=== PATIENT | male | born 1945 | race Caucasian/White ===

== ENCOUNTER 2019-10-31 00:12 | Inpatient (IN) ==
[2019-10-31] MEDS ORDERED: NS 0.9% 1000 ml BAG 1,000 ML IV ONE (00:50)
[2019-10-31] MEDS ORDERED: Albuterol HFA INHALER 8 gm MDI INH PRN (01:32)
[2019-10-31] MEDS ORDERED: Vancomycin(*) 1,250 MG IV x ONCE IVPB ONE (02:00)
[2019-10-31] MEDS ORDERED: Vancomycin per Pharmacy 1 EA NOTE FOLLOW UP SCH (02:00)
[2019-10-31] MEDS ORDERED: Morphine 2 MG/ML SYRINGE IV PRN (02:06)
[2019-10-31] MEDS ORDERED: Al Hydrox/Mg Hydrox/Simet LIQ 30 ML UDC PO PRN (02:06)
[2019-10-31] MEDS ORDERED: Senna TAB 8.6 mg TAB PO PRN (02:06)
[2019-10-31 02:27] LABS: BUN/Creatinine Ratio 18.5 (8-20); Blood Urea Nitrogen 61 mg/dL (6-24); EGFR African American 22.4 (>60); EGFR Non-African American 18.5 (>60); Glucose 282 mg/dL (70-100); Magnesium 1.4 mg/dL (1.9-2.7); Sodium 130 mmol/L (135-145)
[2019-10-31 02:38] LABS: Anion Gap 7 mmol/L (2-11); CO2 Carbon Dioxide 10 mmol/L (22-32); Calcium 6.4 mg/dL (8.6-10.3); Chloride 113 mmol/L (101-111)
[2019-10-31] MEDS ORDERED: Magnesium Sulfate IV 3 GM in NS 0.9% 100 ml BAG 100 ML IVPB ONE (02:40)
[2019-10-31] MEDS ORDERED: Lactated Ringers 1000 ml BAG 1,000 ML IV SCH (03:00)
[2019-10-31 04:18] LABS: Prealbumin 10 mg/dL (18-38)
[2019-10-31 04:33] LABS: Hematocrit 30 % (42-52); Hemoglobin 9.6 g/dL (14.0-18.0); Mean Corpuscular HGB Conc 32 g/dL (31-36); Mean Corpuscular Hemoglobin 29 pg (27-31); Mean Corpuscular Volume 89 fL (80-94); Mean Platelet Volume 7.2 fL (7.4-10.4); Platelet Count 333 10^3/uL (150-450); Red Blood Count 3.38 10^6 /uL (4.18-5.48); Red Cell Distribution Width 17 % (10-15); White Blood Count 23.7 10^3/uL (3.5-10.8)
[2019-10-31 04:41] LABS: Potassium 3.8 mmol/L (3.5-5.0)
[2019-10-31] MEDS: Cefepime 2 GM in Dextrose 2 GM/50 ML BAG IV SCH (04:42)
[2019-10-31 04:44] LABS: INR 1.59 (0.82-1.09)
[2019-10-31 04:47] LABS: BUN/Creatinine Ratio 18.7 (8-20); EGFR African American 21.8 (>60)
[2019-10-31] MEDS ORDERED: Sodium Bicarbonate 8.4% VIAL 1 MEQ/ML 50 ml VIAL (50 meq) IV ONE (05:08)
[2019-10-31 05:27] LABS: Vancomycin Trough 4.2 mcg/mL
[2019-10-31] MEDS: Sodium Bicarb 8.4% Vial 50 ML 150 MEQ in D5W 1000 ml BAG 850 ML IV SCH ×2 (05:32→20:20)
[2019-10-31] MEDS: Insulin GLARGINE 100 un/ml 10 ml VIAL SUBCUT SCH (05:36)
[2019-10-31] MEDS ORDERED: Heparin 5000 UNITS/ML 1 mL VIAL SUBCUT SCH (06:00)
[2019-10-31 07:57] LABS: ABS Basophils 0.3 10^3/ul (0-0.2); ABS Neutrophils 20.5 10^3/ul (1.5-7.7); Lymphocyte % 4.2 %
[2019-10-31] MEDS: metroNIDAZOLE IV 500 MG/100ML 500 MG/100 ML BAG IVPB SCH ×3 (08:10→17:18)
[2019-10-31] MEDS: NS 0.9% 1000 ml BAG 1,000 ML IV SCH (08:10)
[2019-10-31] MEDS ORDERED: Vancomycin Random Level NOTE FOLLOW UP ONE (10:00)
[2019-10-31 11:16] LABS: Vancomycin Random 4.2 mcg/mL
[2019-10-31] MEDS ORDERED: Calcium Gluconate 2 GM in NS 0.9% 100 ml BAG 100 ML IV ONE (12:12)
[2019-10-31] MEDS ORDERED: Vancomycin 1500 MG IV - x ONCE IVPB ONE (13:30)
[2019-10-31] MEDS ORDERED: Warfarin DAILY REMINDER **NOTE FOLLOW UP SCH (17:00)
[2019-10-31 18:50] LABS: Potassium Redraw 3.6 mmol/L (3.5-5.0)
[2019-10-31 19:43] LABS: Hematocrit 26 % (42-52); Hemoglobin 8.5 g/dL (14.0-18.0); Mean Corpuscular HGB Conc 34 g/dL (31-36); Mean Corpuscular Hemoglobin 29 pg (27-31); Mean Corpuscular Volume 86 fL (80-94); Mean Platelet Volume 7.3 fL (7.4-10.4); Platelet Count 311 10^3/uL (150-450); Red Blood Count 2.98 10^6 /uL (4.18-5.48); Red Cell Distribution Width 18 % (10-15); White Blood Count 15.2 10^3/uL (3.5-10.8)
[2019-10-31 20:09] LABS: ABS Basophils 0.1 10^3/ul (0-0.2); ABS Eosinophils 1.3 10^3/ul (0-0.6); ABS Lymphocytes 0.9 10^3/ul (1.0-4.8); ABS Monocytes 0.7 10^3/ul (0-0.8); ABS Neutrophils 12.2 10^3/ul (1.5-7.7); Eosinophil % 8.3 %; Lymphocyte % 6.2 %
[2019-10-31 20:10] LABS: Troponin I 0.04 ng/mL (<0.03)
[2019-10-31 20:18] LABS: ALT 15 U/L (7-52); AST 25 U/L (13-39); Albumin 1.9 g/dL (3.2-5.2); Albumin/Globulin Ratio 0.5 (1-3); Alkaline Phosphatase 85 U/L (34-104); BUN/Creatinine Ratio 19.6 (8-20); Blood Urea Nitrogen 54 mg/dL (6-24); Calcium 7.3 mg/dL (8.6-10.3); EGFR African American 27.6 (>60); EGFR Non-African American 22.8 (>60); Globulin 3.6 g/dL (2-4); Glucose 174 mg/dL (70-100); Potassium 2.9 mmol/L (3.5-5.0); Sodium 136 mmol/L (135-145); Total Protein 5.5 g/dL (6.4-8.9)
[2019-10-31 20:21] LABS: Anion Gap 8 mmol/L (2-11); CO2 Carbon Dioxide 13 mmol/L (22-32); Chloride 115 mmol/L (101-111)
[2019-10-31] MEDS ORDERED: Potassium Chlor 20 meq TAB.ER PO ONE (21:45)
[2019-11-01] MEDS: NS 0.9% 1000 ml BAG 1,000 ML IV SCH ×2 (00:39→08:47)
[2019-11-01 01:50] LABS: Urine Creatinine Concentration 58.33 mg/dL
[2019-11-01] MEDS: Cefepime 2 GM in Dextrose 2 GM/50 ML BAG IV SCH (04:40)
[2019-11-01] MEDS: Insulin GLARGINE 100 un/ml 10 ml VIAL SUBCUT SCH (05:12)
[2019-11-01] MEDS: metroNIDAZOLE IV 500 MG/100ML 500 MG/100 ML BAG IVPB SCH ×2 (05:13→17:38)
[2019-11-01] MEDS ORDERED: Vancomycin Random Level NOTE FOLLOW UP ONE (06:00)
[2019-11-01 07:17] LABS: Hematocrit 23 % (42-52); Hemoglobin 8.1 g/dL (14.0-18.0); Mean Corpuscular HGB Conc 36 g/dL (31-36); Mean Corpuscular Hemoglobin 31 pg (27-31); Mean Corpuscular Volume 85 fL (80-94); Mean Platelet Volume 7.1 fL (7.4-10.4); Platelet Count 272 10^3/uL (150-450); Red Blood Count 2.66 10^6 /uL (4.18-5.48); Red Cell Distribution Width 18 % (10-15); White Blood Count 13.3 10^3/uL (3.5-10.8)
[2019-11-01 07:33] LABS: Activated Partial Thrombo Time 33.5 seconds (26.0-38.0); INR 1.78 (0.82-1.09)
[2019-11-01 07:44] LABS: C Reactive Protein 24.9 mg/L (<8.01); Calcium 6.8 mg/dL (8.6-10.3); EGFR African American 35.7 (>60); EGFR Non-African American 29.5 (>60); Magnesium 1.8 mg/dL (1.9-2.7); Potassium 3.2 mmol/L (3.5-5.0)
[2019-11-01 08:03] LABS: ABS Basophils 0.1 10^3/ul (0-0.2); ABS Eosinophils 1.3 10^3/ul (0-0.6); ABS Lymphocytes 1.1 10^3/ul (1.0-4.8); ABS Monocytes 0.8 10^3/ul (0-0.8); ABS Neutrophils 10.1 10^3/ul (1.5-7.7); Eosinophil % 9.6 %
[2019-11-01] MEDS ORDERED: Magnesium Sulfate IV 1GM/100ML 1 GM/100 ML BAG IV ONE (08:42)
[2019-11-01] MEDS: Sodium Bicarb 8.4% Vial 50 ML 150 MEQ in D5W 1000 ml BAG 850 ML IV SCH (08:50)
[2019-11-01] MEDS: oxyCODONE/Acetamin 5/325 mg TAB PO PRN ×2 (09:45→20:01)
[2019-11-01 10:21] LABS: Vancomycin Random 14.1 mcg/mL
[2019-11-01] MEDS: KCL 20 MEQ/100 ML IVPREMIX 20 MEQ/100 ML BAG IV SCH ×3 (10:30→16:56)
[2019-11-01] MEDS ORDERED: Vancomycin 1,250 MG in NS 0.9% 250 ml 250 ML IV ONE (11:00)
[2019-11-01] MEDS: Heparin 5000 UNITS/ML 1 mL VIAL IV SCH (12:16)
[2019-11-01] MEDS: Heparin DRIP 25,000 UNITS BAG 25,000 UNITS/500 ML BAG IV SCH (12:20)
[2019-11-01] MEDS ORDERED: Neomycin/Polym/Bacit TOP OINT 15 GM TOPICAL SCH (14:00)
[2019-11-01] MEDS: Neosporin TOPICAL OINT PACKET TOPICAL SCH ×2 (15:09→20:46)
[2019-11-01 18:10] LABS: BUN/Creatinine Ratio 21.2 (8-20); Calcium 7.3 mg/dL (8.6-10.3); EGFR African American 45.3 (>60); EGFR Non-African American 37.4 (>60); Potassium 3.7 mmol/L (3.5-5.0)
[2019-11-01 21:47] LABS: Urine Appearance Cloudy; Urine Bilirubin Negative (Negative); Urine Blood 3+ (Negative); Urine Color Yellow; Urine Glucose 1+(50 mg/dL) (Negative); Urine Ketones Negative (Negative); Urine Nitrite Negative (Negative); Urine Protein 1+(30 mg/dL) (Negative); Urine Specific Gravity 1.011 (1.010-1.030); Urine Urobilinogen Negative (Negative)
[2019-11-01 21:51] LABS: Urine Bacteria Absent (Absent); Urine Red Blood Cell 3+(>10/hpf) (Absent); Urine Squamous Epithelial Cell Present (Absent); Urine White Blood Cell 3+(>20/hpf) (Absent)
[2019-11-02] MEDS: Cefepime 2 GM in Dextrose 2 GM/50 ML BAG IV SCH (05:34)
[2019-11-02] MEDS ORDERED: Vancomycin Random Level NOTE FOLLOW UP ONE (06:00)
[2019-11-02] MEDS: metroNIDAZOLE IV 500 MG/100ML 500 MG/100 ML BAG IVPB SCH ×2 (06:10→18:56)
[2019-11-02 07:40] LABS: Hematocrit 24 % (42-52); Hemoglobin 8.3 g/dL (14.0-18.0); Mean Corpuscular HGB Conc 34 g/dL (31-36); Mean Corpuscular Hemoglobin 30 pg (27-31); Mean Corpuscular Volume 86 fL (80-94); Mean Platelet Volume 7.2 fL (7.4-10.4); Platelet Count 276 10^3/uL (150-450); Red Blood Count 2.81 10^6 /uL (4.18-5.48); Red Cell Distribution Width 18 % (10-15); White Blood Count 15.8 10^3/uL (3.5-10.8)
[2019-11-02 07:50] LABS: Activated Partial Thrombo Time 67.1 seconds (26.0-38.0); INR 1.78 (0.82-1.09)
[2019-11-02 07:56] LABS: BUN/Creatinine Ratio 19.2 (8-20); Calcium 7.1 mg/dL (8.6-10.3); EGFR African American 47.4 (>60); EGFR Non-African American 39.2 (>60); Magnesium 1.8 mg/dL (1.9-2.7); Potassium 4.4 mmol/L (3.5-5.0)
[2019-11-02] MEDS: Insulin GLARGINE 100 un/ml 10 ml VIAL SUBCUT SCH (08:27)
[2019-11-02 08:34] LABS: Vancomycin Random 18.5 mcg/mL
[2019-11-02 09:37] LABS: ABS Basophils 0.1 10^3/ul (0-0.2); ABS Eosinophils 2.1 10^3/ul (0-0.6); ABS Lymphocytes 1.6 10^3/ul (1.0-4.8); ABS Monocytes 1.2 10^3/ul (0-0.8); ABS Neutrophils 10.8 10^3/ul (1.5-7.7); Eosinophil % 13.1 %; Lymphocyte % 10.3 %
[2019-11-02] MEDS: Neosporin TOPICAL OINT PACKET TOPICAL SCH ×3 (10:48→19:33)
[2019-11-02] MEDS ORDERED: Metoprolol Tartrate 5 mg VIAL 5 ml VIAL (1 mg/ml) IV ONE (11:01)
[2019-11-02] MEDS ORDERED: Perflutren Lipid Microsphere 3 ML VIAL ONE (13:17)
[2019-11-02] MEDS ORDERED: Magnesium Hydroxide LIQ 30 ML UDC PO PRN (14:31)
[2019-11-02] MEDS ORDERED: Warfarin per PHARMACY **NOTE FOLLOW UP SCH (15:00)
[2019-11-02] MEDS ORDERED: Vancomycin 750 MG in NS 0.9% 250 ml 250 ML IVPB ONE (16:00)
[2019-11-02] MEDS: Warfarin DAILY REMINDER **NOTE FOLLOW UP SCH (17:21)
[2019-11-02] MEDS: Heparin DRIP 25,000 UNITS BAG 25,000 UNITS/500 ML BAG IV SCH (19:39)
[2019-11-02] MEDS: oxyCODONE/Acetamin 5/325 mg TAB PO PRN (20:33)
[2019-11-03] MEDS: Cefepime 2 GM in Dextrose 2 GM/50 ML BAG IV SCH (04:48)
[2019-11-03 05:10] LABS: Hematocrit 27 % (42-52); Hemoglobin 8.9 g/dL (14.0-18.0); Mean Corpuscular HGB Conc 33 g/dL (31-36); Mean Corpuscular Hemoglobin 29 pg (27-31); Mean Corpuscular Volume 87 fL (80-94); Platelet Count 284 10^3/uL (150-450); Red Blood Count 3.08 10^6 /uL (4.18-5.48); Red Cell Distribution Width 19 % (10-15); White Blood Count 15.2 10^3/uL (3.5-10.8)
[2019-11-03 05:19] LABS: Activated Partial Thrombo Time 82.5 seconds (26.0-38.0); INR 1.89 (0.82-1.09)
[2019-11-03 05:22] LABS: Calcium 7.4 mg/dL (8.6-10.3); Magnesium 1.8 mg/dL (1.9-2.7); Potassium 4.2 mmol/L (3.5-5.0)
[2019-11-03 05:28] LABS: BUN/Creatinine Ratio 18.6 (8-20); EGFR African American 57.7 (>60); EGFR Non-African American 47.7 (>60)
[2019-11-03] MEDS ORDERED: Vancomycin Random Level NOTE FOLLOW UP ONE (06:00)
[2019-11-03] MEDS: metroNIDAZOLE IV 500 MG/100ML 500 MG/100 ML BAG IVPB SCH ×2 (06:02→20:01)
[2019-11-03 06:33] LABS: ABS Basophils 0.1 10^3/ul (0-0.2); ABS Eosinophils 2.3 10^3/ul (0-0.6); ABS Lymphocytes 1.6 10^3/ul (1.0-4.8); ABS Neutrophils 10.3 10^3/ul (1.5-7.7); Lymphocyte % 10.2 %
[2019-11-03] MEDS: Insulin GLARGINE 100 un/ml 10 ml VIAL SUBCUT SCH (07:41)
[2019-11-03] MEDS: Multivitamins ADULT w/MIN LIQ 15 ML UDC PO SCH (07:41)
[2019-11-03] MEDS: Neosporin TOPICAL OINT PACKET TOPICAL SCH ×3 (07:43→19:25)
[2019-11-03 08:53] LABS: Vancomycin Random 18.7 mcg/mL
[2019-11-03] MEDS ORDERED: Magnesium Sulfate 2 gm BAG 2 GM/50 ML BAG IVPB ONE (10:56)
[2019-11-03] MEDS: Heparin 5000 UNITS/ML 1 mL VIAL IV SCH (13:36)
[2019-11-03] MEDS ORDERED: Vancomycin 1,000 MG in NS 0.9% 250 ml 250 ML IV ONE (16:00)
[2019-11-03] MEDS: Warfarin DAILY REMINDER **NOTE FOLLOW UP SCH (17:24)
[2019-11-03] MEDS: oxyCODONE/Acetamin 5/325 mg TAB PO PRN (19:30)
[2019-11-04] MEDS ORDERED: Heparin DRIP 25,000 UNITS BAG 25,000 UNITS/500 ML BAG IV SCH (01:30)
[2019-11-04] MEDS: Cefepime 2 GM in Dextrose 2 GM/50 ML BAG IV SCH (04:30)
[2019-11-04 05:49] LABS: Hematocrit 29 % (42-52); Hemoglobin 9.7 g/dL (14.0-18.0); Mean Corpuscular HGB Conc 34 g/dL (31-36); Mean Corpuscular Hemoglobin 30 pg (27-31); Mean Corpuscular Volume 88 fL (80-94); Mean Platelet Volume 7.2 fL (7.4-10.4); Platelet Count 315 10^3/uL (150-450); Red Blood Count 3.31 10^6 /uL (4.18-5.48); Red Cell Distribution Width 19 % (10-15); White Blood Count 14.5 10^3/uL (3.5-10.8)
[2019-11-04 05:56] LABS: INR 2.13 (0.82-1.09)
[2019-11-04] MEDS ORDERED: Vancomycin Random Level NOTE FOLLOW UP ONE (06:00)
[2019-11-04 06:07] LABS: BUN/Creatinine Ratio 15.7 (8-20); Calcium 7.7 mg/dL (8.6-10.3); EGFR African American 63.2 (>60); EGFR Non-African American 52.3 (>60); Potassium 4.3 mmol/L (3.5-5.0)
[2019-11-04] MEDS: metroNIDAZOLE IV 500 MG/100ML 500 MG/100 ML BAG IVPB SCH ×2 (06:43→18:21)
[2019-11-04 07:20] LABS: Vancomycin Random 21.8 mcg/mL
[2019-11-04 07:55] LABS: ABS Basophils 0.3 10^3/ul (0-0.2); ABS Eosinophils 2.3 10^3/ul (0-0.6); ABS Lymphocytes 1.5 10^3/ul (1.0-4.8); ABS Monocytes 0.9 10^3/ul (0-0.8); ABS Neutrophils 9.6 10^3/ul (1.5-7.7); Eosinophil % 15.7 %; Lymphocyte % 10.4 %; Nucleated Red Blood Cells % 0.1
[2019-11-04] MEDS: Multivitamins ADULT w/MIN LIQ 15 ML UDC PO SCH (09:08)
[2019-11-04] MEDS: Insulin GLARGINE 100 un/ml 10 ml VIAL SUBCUT SCH (09:10)
[2019-11-04] MEDS: Neosporin TOPICAL OINT PACKET TOPICAL SCH ×3 (09:18→20:47)
[2019-11-04] MEDS: oxyCODONE/Acetamin 5/325 mg TAB PO PRN ×2 (13:08→20:47)
[2019-11-04] MEDS: Heparin 5000 UNITS/ML 1 mL VIAL IV SCH (13:08)
[2019-11-04] MEDS ORDERED: Vancomycin 1,000 MG in NS 0.9% 250 ml 250 ML IV ONE (16:00)
[2019-11-04] MEDS: Warfarin DAILY REMINDER **NOTE FOLLOW UP SCH (16:35)
[2019-11-05] MEDS: Cefepime 2 GM in Dextrose 2 GM/50 ML BAG IV SCH (04:07)
[2019-11-05] MEDS ORDERED: Vancomycin Random Level NOTE FOLLOW UP ONE (06:00)
[2019-11-05] MEDS: metroNIDAZOLE IV 500 MG/100ML 500 MG/100 ML BAG IVPB SCH ×2 (06:06→16:54)
[2019-11-05 06:56] LABS: Hematocrit 30 % (42-52); Hemoglobin 9.7 g/dL (14.0-18.0); INR 2.68 (0.82-1.09); Mean Corpuscular HGB Conc 32 g/dL (31-36); Mean Corpuscular Hemoglobin 29 pg (27-31); Mean Corpuscular Volume 90 fL (80-94); Mean Platelet Volume 7.5 fL (7.4-10.4); Platelet Count 291 10^3/uL (150-450); Red Blood Count 3.31 10^6 /uL (4.18-5.48); Red Cell Distribution Width 20 % (10-15); White Blood Count 17.7 10^3/uL (3.5-10.8)
[2019-11-05 06:59] LABS: Calcium 7.9 mg/dL (8.6-10.3); EGFR African American 61.1 (>60); EGFR Non-African American 50.5 (>60); Potassium 4.6 mmol/L (3.5-5.0)
[2019-11-05 07:30] LABS: ABS Basophils 0.4 10^3/ul (0-0.2); ABS Eosinophils 2.4 10^3/ul (0-0.6); ABS Lymphocytes 1.7 10^3/ul (1.0-4.8); ABS Monocytes 1.1 10^3/ul (0-0.8); ABS Neutrophils 12.2 10^3/ul (1.5-7.7); Eosinophil % 13.3 %; Lymphocyte % 9.7 %; Nucleated Red Blood Cells % 0.1
[2019-11-05] MEDS: oxyCODONE/Acetamin 5/325 mg TAB PO PRN (09:03)
[2019-11-05] MEDS: Insulin GLARGINE 100 un/ml 10 ml VIAL SUBCUT SCH (09:04)
[2019-11-05] MEDS: Multivitamins ADULT w/MIN LIQ 15 ML UDC PO SCH (09:04)
[2019-11-05] MEDS: Neosporin TOPICAL OINT PACKET TOPICAL SCH ×3 (09:08→20:42)
[2019-11-05] MEDS: Warfarin DAILY REMINDER **NOTE FOLLOW UP SCH (16:54)
[2019-11-05] MEDS: Sodium Citrate/Citric Acid LIQ 15 ML UDC PO SCH (20:42)
[2019-11-06] MEDS: Cefepime 2 GM in Dextrose 2 GM/50 ML BAG IV SCH (04:18)
[2019-11-06] MEDS: metroNIDAZOLE IV 500 MG/100ML 500 MG/100 ML BAG IVPB SCH ×2 (04:58→17:51)
[2019-11-06] MEDS ORDERED: Vancomycin Random Level NOTE FOLLOW UP ONE (06:00)
[2019-11-06 06:13] LABS: ABS Basophils 0.3 10^3/ul (0-0.2); ABS Eosinophils 1.6 10^3/ul (0-0.6); ABS Lymphocytes 1.2 10^3/ul (1.0-4.8); Eosinophil % 11.6 %; Hematocrit 29 % (42-52); Hemoglobin 9.3 g/dL (14.0-18.0); Lymphocyte % 8.4 %; Mean Corpuscular HGB Conc 33 g/dL (31-36); Mean Corpuscular Hemoglobin 29 pg (27-31); Mean Corpuscular Volume 90 fL (80-94); Mean Platelet Volume 7.5 fL (7.4-10.4); Platelet Count 273 10^3/uL (150-450); Red Blood Count 3.16 10^6 /uL (4.18-5.48); Red Cell Distribution Width 20 % (10-15)
[2019-11-06 06:18] LABS: Activated Partial Thrombo Time 43.1 seconds (26.0-38.0); INR 2.8 (0.82-1.09)
[2019-11-06 06:30] LABS: BUN/Creatinine Ratio 13.7 (8-20); Calcium 7.9 mg/dL (8.6-10.3); EGFR African American 60.6 (>60); EGFR Non-African American 50.1 (>60); Potassium 4.8 mmol/L (3.5-5.0)
[2019-11-06 08:58] LABS: C Reactive Protein 7.26 mg/L (<8.01)
[2019-11-06] MEDS: Insulin GLARGINE 100 un/ml 10 ml VIAL SUBCUT SCH (09:04)
[2019-11-06] MEDS: Multivitamins ADULT w/MIN LIQ 15 ML UDC PO SCH (09:06)
[2019-11-06] MEDS: Neosporin TOPICAL OINT PACKET TOPICAL SCH ×3 (09:07→22:01)
[2019-11-06] MEDS: Sodium Citrate/Citric Acid LIQ 15 ML UDC PO SCH ×2 (09:07→22:01)
[2019-11-06 09:43] LABS: Vancomycin Random 17.3 mcg/mL
[2019-11-06] MEDS ORDERED: Vancomycin 1,000 MG in NS 0.9% 250 ml 250 ML IV SCH (16:00)
[2019-11-06] MEDS: Warfarin DAILY REMINDER **NOTE FOLLOW UP SCH (16:30)
[2019-11-07] MEDS: Cefepime 2 GM in Dextrose 2 GM/50 ML BAG IV SCH (04:18)
[2019-11-07] MEDS: metroNIDAZOLE IV 500 MG/100ML 500 MG/100 ML BAG IVPB SCH (04:58)
[2019-11-07 06:43] LABS: Hematocrit 30 % (42-52); Hemoglobin 10.1 g/dL (14.0-18.0); Mean Corpuscular HGB Conc 34 g/dL (31-36); Mean Corpuscular Hemoglobin 30 pg (27-31); Mean Corpuscular Volume 90 fL (80-94); Mean Platelet Volume 7.5 fL (7.4-10.4); Platelet Count 291 10^3/uL (150-450); Red Blood Count 3.32 10^6 /uL (4.18-5.48); Red Cell Distribution Width 20 % (10-15); White Blood Count 11.5 10^3/uL (3.5-10.8)
[2019-11-07 06:49] LABS: INR 2.94 (0.82-1.09)
[2019-11-07 07:00] LABS: BUN/Creatinine Ratio 14.1 (8-20); Calcium 8.1 mg/dL (8.6-10.3); EGFR African American 55.9 (>60); EGFR Non-African American 46.2 (>60)
[2019-11-07] MEDS: Multivitamins ADULT w/MIN LIQ 15 ML UDC PO SCH (08:22)
[2019-11-07] MEDS: Neosporin TOPICAL OINT PACKET TOPICAL SCH ×3 (08:23→22:56)
[2019-11-07] MEDS: Sodium Citrate/Citric Acid LIQ 15 ML UDC PO SCH ×2 (08:23→22:53)
[2019-11-07 08:29] LABS: ABS Basophils 0.2 10^3/ul (0-0.2); ABS Eosinophils 1.4 10^3/ul (0-0.6); ABS Lymphocytes 1.4 10^3/ul (1.0-4.8); ABS Monocytes 0.8 10^3/ul (0-0.8); ABS Neutrophils 7.6 10^3/ul (1.5-7.7); Lymphocyte % 12.5 %
[2019-11-07] MEDS: Insulin GLARGINE 100 un/ml 10 ml VIAL SUBCUT SCH (09:46)
[2019-11-07] MEDS: Warfarin DAILY REMINDER **NOTE FOLLOW UP SCH (17:20)
[2019-11-07] MEDS: Ondansetron 4 mg VIAL 2 MG/ML 2 ml VIAL IV PRN ×2 (18:08→22:45)
[2019-11-07] MEDS: Metoprolol Tartrate 5 mg VIAL 5 ml VIAL (1 mg/ml) IV PRN (21:39)
[2019-11-08] MEDS: Ondansetron 4 mg VIAL 2 MG/ML 2 ml VIAL IV PRN ×2 (01:28→08:27)
[2019-11-08] MEDS ORDERED: Metoprolol Tartrate 5 mg VIAL 5 ml VIAL (1 mg/ml) IV PRN (04:12)
[2019-11-08] MEDS ORDERED: Metoclopramide 5 MG/ML VIAL (10 mg) IV PRN (04:15)
[2019-11-08] MEDS: Metoprolol Tartrate 5 mg VIAL 5 ml VIAL (1 mg/ml) IV PRN ×3 (04:39→05:25)
[2019-11-08 06:31] LABS: INR 2.89 (0.82-1.09)
[2019-11-08] MEDS: Insulin GLARGINE 100 un/ml 10 ml VIAL SUBCUT SCH (08:41)
[2019-11-08 09:51] LABS: Calcium 9.1 mg/dL (8.6-10.3); Magnesium 1.8 mg/dL (1.9-2.7); Potassium 5.9 mmol/L (3.5-5.0)
[2019-11-08 09:56] LABS: BUN/Creatinine Ratio 16.2 (8-20); EGFR African American 40.3 (>60); EGFR Non-African American 33.3 (>60)
[2019-11-08] MEDS: Multivitamins ADULT w/MIN LIQ 15 ML UDC PO SCH (10:53)
[2019-11-08] MEDS: Neosporin TOPICAL OINT PACKET TOPICAL SCH ×3 (10:55→23:37)
[2019-11-08] MEDS: Sodium Citrate/Citric Acid LIQ 15 ML UDC PO SCH ×3 (10:55→21:31)
[2019-11-08] MEDS: Lactated Ringers 1000 ml BAG 1,000 ML IV SCH (10:55)
[2019-11-08] MEDS ORDERED: Magnesium Sulfate IV 1GM/100ML 1 GM/100 ML BAG IV ONE (14:12)
[2019-11-08 15:28] LABS: Sodium 131 mmol/L (135-145)
[2019-11-08] MEDS ORDERED: Vancomycin Trough Check NOTE FOLLOW UP ONE (15:30)
[2019-11-08 15:34] LABS: BUN/Creatinine Ratio 16.1 (8-20); Blood Urea Nitrogen 39 mg/dL (6-24); EGFR Non-African American 26.4 (>60); Glucose 113 mg/dL (70-100)
[2019-11-08 15:42] LABS: Anion Gap 7 mmol/L (2-11); CO2 Carbon Dioxide 10 mmol/L (22-32); Chloride 114 mmol/L (101-111)
[2019-11-08] MEDS: Psyllium PAK PO SCH (15:57)
[2019-11-08] MEDS ORDERED: Sodium Polystyrene ORAL.SUSP 15 GM/60 ML BTL PO ONE (17:51)
[2019-11-08] MEDS ORDERED: Dextrose 50% Syringe 50 ml 25 GM/50 ML SYRINGE IV PUSH ONE ×2 (17:54→23:00)
[2019-11-08] MEDS: Warfarin DAILY REMINDER **NOTE FOLLOW UP SCH (18:14)
[2019-11-08] MEDS ORDERED: NS 0.9% 1000 ml BAG 1,000 ML IV ONE ×2 (18:30→23:16)
[2019-11-08] MEDS ORDERED: Albuterol/Ipratropium NEB.SOL (2.5/0.5 MG) 3 ML NEB.SOLN INH ONE (20:05)
[2019-11-08] MEDS ORDERED: Albuterol/Ipratropium NEB.SOL (2.5/0.5 MG) 3 ML NEB.SOLN INH PRN (20:06)
[2019-11-08 20:07] LABS: Potassium 5.9 mmol/L (3.5-5.0)
[2019-11-08 23:07] LABS: BUN/Creatinine Ratio 16.2 (8-20); Calcium 8.4 mg/dL (8.6-10.3); EGFR African American 28.8 (>60); EGFR Non-African American 23.8 (>60)
[2019-11-08 23:09] LABS: Potassium 5.1 mmol/L (3.5-5.0)
[2019-11-08] MEDS ORDERED: Dextrose 50% Syringe 50 ml 25 GM/50 ML SYRINGE IV PUSH PRN (23:17)
[2019-11-09] MEDS: Lactated Ringers 1000 ml BAG 1,000 ML IV SCH ×2 (02:25→12:37)
[2019-11-09] MEDS ORDERED: Lactated Ringers 1000 ml BAG 1,000 ML IV ONE (05:00)
[2019-11-09 06:01] LABS: ABS Basophils 0.2 10^3/ul (0-0.2); ABS Eosinophils 0.4 10^3/ul (0-0.6); ABS Lymphocytes 1.1 10^3/ul (1.0-4.8); ABS Monocytes 1.2 10^3/ul (0-0.8); ABS Neutrophils 11.6 10^3/ul (1.5-7.7); Eosinophil % 3.1 %; Hematocrit 28 % (42-52); Hemoglobin 9.4 g/dL (14.0-18.0); Lymphocyte % 7.8 %; Mean Corpuscular HGB Conc 33 g/dL (31-36); Mean Corpuscular Hemoglobin 31 pg (27-31); Mean Corpuscular Volume 92 fL (80-94); Mean Platelet Volume 7.6 fL (7.4-10.4); Platelet Count 287 10^3/uL (150-450); Red Blood Count 3.08 10^6 /uL (4.18-5.48); Red Cell Distribution Width 20 % (10-15); White Blood Count 14.6 10^3/uL (3.5-10.8)
[2019-11-09 06:20] LABS: BUN/Creatinine Ratio 15.8 (8-20); Calcium 7.9 mg/dL (8.6-10.3); EGFR African American 32.3 (>60); EGFR Non-African American 26.7 (>60); Potassium 4.6 mmol/L (3.5-5.0)
[2019-11-09] MEDS: Multivitamins ADULT w/MIN LIQ 15 ML UDC PO SCH (09:14)
[2019-11-09] MEDS: Psyllium PAK PO SCH (09:15)
[2019-11-09] MEDS: Insulin GLARGINE 100 un/ml 10 ml VIAL SUBCUT SCH (09:18)
[2019-11-09] MEDS: Sodium Citrate/Citric Acid LIQ 15 ML UDC PO SCH ×3 (09:20→20:16)
[2019-11-09] MEDS: Neosporin TOPICAL OINT PACKET TOPICAL SCH ×3 (09:41→20:16)
[2019-11-09] MEDS: Diphenoxylat/Atrop 2.5-0.025mg TAB PO SCH ×2 (16:38→20:16)
[2019-11-09] MEDS: Warfarin DAILY REMINDER **NOTE FOLLOW UP SCH (16:41)
[2019-11-09] MEDS ORDERED: Warfarin - No Order Today **NOTE FOLLOW UP ONE (17:00)
[2019-11-10 05:45] LABS: INR 3.69 (0.82-1.09)
[2019-11-10] MEDS: Sodium Citrate/Citric Acid LIQ 15 ML UDC PO SCH ×3 (08:57→22:42)
[2019-11-10] MEDS: Psyllium PAK PO SCH (08:57)
[2019-11-10] MEDS: Multivitamins ADULT w/MIN LIQ 15 ML UDC PO SCH (08:58)
[2019-11-10] MEDS: Diphenoxylat/Atrop 2.5-0.025mg TAB PO SCH ×4 (08:58→22:42)
[2019-11-10] MEDS: Neosporin TOPICAL OINT PACKET TOPICAL SCH (08:58)
[2019-11-10] MEDS: Insulin GLARGINE 100 un/ml 10 ml VIAL SUBCUT SCH ×2 (09:39→10:19)
[2019-11-10] MEDS: Warfarin DAILY REMINDER **NOTE FOLLOW UP SCH (16:59)
[2019-11-11 05:46] LABS: Hematocrit 31 % (42-52); Hemoglobin 10.2 g/dL (14.0-18.0); Mean Corpuscular HGB Conc 33 g/dL (31-36); Mean Corpuscular Hemoglobin 30 pg (27-31); Mean Corpuscular Volume 92 fL (80-94); Mean Platelet Volume 7.6 fL (7.4-10.4); Platelet Count 321 10^3/uL (150-450); Red Blood Count 3.39 10^6 /uL (4.18-5.48); Red Cell Distribution Width 21 % (10-15); White Blood Count 8.4 10^3/uL (3.5-10.8)
[2019-11-11 05:59] LABS: INR 2.5 (0.82-1.09)
[2019-11-11 06:01] LABS: Calcium 8.6 mg/dL (8.6-10.3); EGFR African American 56.8 (>60); Potassium 4.6 mmol/L (3.5-5.0)
[2019-11-11] MEDS: Dextrose 50% Syringe 50 ml 25 GM/50 ML SYRINGE IV PUSH PRN (06:22)
[2019-11-11] MEDS: Insulin GLARGINE 100 un/ml 10 ml VIAL SUBCUT SCH (10:20)
[2019-11-11] MEDS: Diphenoxylat/Atrop 2.5-0.025mg TAB PO SCH ×4 (10:22→22:10)
[2019-11-11] MEDS: Psyllium PAK PO SCH (10:23)
[2019-11-11] MEDS: Sodium Citrate/Citric Acid LIQ 15 ML UDC PO SCH ×3 (10:23→22:12)
[2019-11-11] MEDS: Multivitamins ADULT w/MIN LIQ 15 ML UDC PO SCH (10:23)
[2019-11-11] MEDS: Warfarin DAILY REMINDER **NOTE FOLLOW UP SCH (18:04)
[2019-11-11] MEDS: oxyCODONE/Acetamin 5/325 mg TAB PO PRN ×2 (18:55→23:36)
[2019-11-12 06:48] LABS: INR 1.86 (0.82-1.09)
[2019-11-12] MEDS: Psyllium PAK PO SCH (09:07)
[2019-11-12] MEDS: Multivitamins ADULT w/MIN LIQ 15 ML UDC PO SCH (09:08)
[2019-11-12] MEDS: Sodium Citrate/Citric Acid LIQ 15 ML UDC PO SCH ×3 (09:08→20:41)
[2019-11-12] MEDS: Diphenoxylat/Atrop 2.5-0.025mg TAB PO SCH ×4 (09:09→20:42)
[2019-11-12] MEDS: Insulin GLARGINE 100 un/ml 10 ml VIAL SUBCUT SCH (11:17)
[2019-11-12] MEDS: Warfarin DAILY REMINDER **NOTE FOLLOW UP SCH (17:53)
[2019-11-13 07:32] LABS: Hematocrit 28 % (42-52); Hemoglobin 9.3 g/dL (14.0-18.0); Mean Platelet Volume 7.5 fL (7.4-10.4); Platelet Count 268 10^3/uL (150-450)
[2019-11-13 07:37] LABS: INR 1.69 (0.82-1.09)
[2019-11-13] MEDS: Dextrose 50% Syringe 50 ml 25 GM/50 ML SYRINGE IV PUSH PRN (08:01)
[2019-11-13] MEDS: Diphenoxylat/Atrop 2.5-0.025mg TAB PO SCH ×4 (08:31→21:34)
[2019-11-13] MEDS: Psyllium PAK PO SCH (08:32)
[2019-11-13] MEDS: Multivitamins ADULT w/MIN LIQ 15 ML UDC PO SCH (08:32)
[2019-11-13] MEDS: oxyCODONE/Acetamin 5/325 mg TAB PO PRN (08:32)
[2019-11-13] MEDS: Sodium Citrate/Citric Acid LIQ 15 ML UDC PO SCH ×3 (08:33→21:32)
[2019-11-13] MEDS: Insulin GLARGINE 100 un/ml 10 ml VIAL SUBCUT SCH ×2 (11:15→12:06)
[2019-11-13] MEDS ORDERED: Heparin DRIP 25,000 UNITS BAG 25,000 UNITS/500 ML BAG IV SCH (13:15)
[2019-11-13] MEDS: Heparin DRIP 25,000 UNITS BAG 25,000 UNITS/500 ML BAG IV SCH (15:33)
[2019-11-13] MEDS: Heparin 5000 UNITS/ML 1 mL VIAL IV SCH (15:33)
[2019-11-13] MEDS: Warfarin DAILY REMINDER **NOTE FOLLOW UP SCH (17:12)
[2019-11-14 08:08] LABS: Activated Partial Thrombo Time 81.4 seconds (26.0-38.0); INR 1.68 (0.82-1.09)
[2019-11-14 08:10] LABS: Calcium 7.7 mg/dL (8.6-10.3); Magnesium 1.7 mg/dL (1.9-2.7); Sodium 129 mmol/L (135-145)
[2019-11-14 08:16] LABS: BUN/Creatinine Ratio 17.7 (8-20); Blood Urea Nitrogen 31 mg/dL (6-24); EGFR African American 46.5 (>60); EGFR Non-African American 38.4 (>60); Glucose 88 mg/dL (70-100)
[2019-11-14 08:18] LABS: Anion Gap 5 mmol/L (2-11); CO2 Carbon Dioxide 11 mmol/L (22-32); Chloride 113 mmol/L (101-111)
[2019-11-14] MEDS: Psyllium PAK PO SCH (09:07)
[2019-11-14] MEDS: Diphenoxylat/Atrop 2.5-0.025mg TAB PO SCH ×4 (09:09→21:19)
[2019-11-14] MEDS: Multivitamins ADULT w/MIN LIQ 15 ML UDC PO SCH (09:10)
[2019-11-14] MEDS: Sodium Citrate/Citric Acid LIQ 15 ML UDC PO SCH ×3 (09:12→21:19)
[2019-11-14] MEDS: Insulin GLARGINE 100 un/ml 10 ml VIAL SUBCUT SCH (12:03)
[2019-11-14 15:37] LABS: ABS Eosinophils 1.2 10^3/ul (0-0.6); ABS Monocytes 0.7 10^3/ul (0-0.8); ABS Neutrophils 4.1 10^3/ul (1.5-7.7); Eosinophil % 16.9 %; Hematocrit 28 % (42-52); Hemoglobin 9.4 g/dL (14.0-18.0); Lymphocyte % 13.8 %; Mean Corpuscular HGB Conc 34 g/dL (31-36); Mean Corpuscular Hemoglobin 31 pg (27-31); Mean Corpuscular Volume 92 fL (80-94); Mean Platelet Volume 7.5 fL (7.4-10.4); Platelet Count 274 10^3/uL (150-450); Red Blood Count 3.06 10^6 /uL (4.18-5.48); Red Cell Distribution Width 21 % (10-15)
[2019-11-14 16:04] LABS: Urine Appearance Cloudy; Urine Bilirubin Negative (Negative); Urine Blood Negative (Negative); Urine Color Yellow; Urine Glucose 1+(50 mg/dL) (Negative); Urine Ketones Negative (Negative); Urine Nitrite Negative (Negative); Urine Protein 1+(30 mg/dL) (Negative); Urine Urobilinogen Negative (Negative)
[2019-11-14 16:09] LABS: Urine Bacteria 1+ (Absent); Urine Red Blood Cell Trace(0-2/hpf) (Absent); Urine White Blood Cell Trace(0-5/hpf) (Absent)
[2019-11-14 16:10] LABS: Urine Chloride Concentration 28 mmol/L; Urine Creatinine Concentration 76.73 mg/dL; Urine Potassium Concentration 37.6 mmol/L; Urine Sodium Concentration < 18 mmol/L
[2019-11-14 16:12] LABS: Urine TP Concentration 85 mg/dL
[2019-11-14] MEDS: Warfarin DAILY REMINDER **NOTE FOLLOW UP SCH (16:54)
[2019-11-14] MEDS ORDERED: Sodium Bicarbonate 8.4% 75 MEQ in HNS 0.45% 1000 ML BAG IV ONE (18:00)
[2019-11-14] MEDS: oxyCODONE/Acetamin 5/325 mg TAB PO PRN (19:26)
[2019-11-14] MEDS: Heparin DRIP 25,000 UNITS BAG 25,000 UNITS/500 ML BAG IV SCH (21:18)
[2019-11-15 07:01] LABS: ABS Eosinophils 1.2 10^3/ul (0-0.6); ABS Monocytes 0.8 10^3/ul (0-0.8); ABS Neutrophils 3.1 10^3/ul (1.5-7.7); Hematocrit 26 % (42-52); Hemoglobin 8.8 g/dL (14.0-18.0); Lymphocyte % 15.8 %; Mean Corpuscular HGB Conc 34 g/dL (31-36); Mean Corpuscular Hemoglobin 31 pg (27-31); Mean Corpuscular Volume 91 fL (80-94); Mean Platelet Volume 7.3 fL (7.4-10.4); Nucleated Red Blood Cells % 0.1; Platelet Count 254 10^3/uL (150-450); Red Blood Count 2.88 10^6 /uL (4.18-5.48); Red Cell Distribution Width 20 % (10-15); White Blood Count 6.1 10^3/uL (3.5-10.8)
[2019-11-15 07:12] LABS: INR 1.55 (0.82-1.09)
[2019-11-15 07:15] LABS: BUN/Creatinine Ratio 19.2 (8-20); Calcium 8.1 mg/dL (8.6-10.3); EGFR African American 57.3 (>60); EGFR Non-African American 47.3 (>60)
[2019-11-15 07:18] LABS: Potassium 5.3 mmol/L (3.5-5.0)
[2019-11-15] MEDS: Diphenoxylat/Atrop 2.5-0.025mg TAB PO SCH ×4 (09:02→20:34)
[2019-11-15] MEDS: Psyllium PAK PO SCH ×2 (09:03→20:39)
[2019-11-15] MEDS: Sodium Citrate/Citric Acid LIQ 15 ML UDC PO SCH ×3 (09:04→20:41)
[2019-11-15] MEDS: Multivitamins ADULT w/MIN LIQ 15 ML UDC PO SCH (09:04)
[2019-11-15] MEDS: Insulin GLARGINE 100 un/ml 10 ml VIAL SUBCUT SCH (11:37)
[2019-11-15] MEDS: oxyCODONE/Acetamin 5/325 mg TAB PO PRN (14:03)
[2019-11-15] MEDS ORDERED: SODIUM BICARB IV ONE (16:37)
[2019-11-15] MEDS ORDERED: NS 0.45% IV ONE ×2 (16:37→17:30)
[2019-11-15] MEDS ORDERED: Patiromer POWDER 8.4 GM PAK PO SCH (17:00)
[2019-11-15] MEDS ORDERED: SODIUM BICARBONATE IV ONE (17:30)
[2019-11-15] MEDS: Warfarin DAILY REMINDER **NOTE FOLLOW UP SCH (17:59)
[2019-11-15] MEDS ORDERED: Psyllium PAK PO SCH (19:42)
[2019-11-15] MEDS: Patiromer POWDER 8.4 GM PAK PO SCH (20:41)
[2019-11-16 05:04] LABS: Hematocrit 29 % (42-52); Hemoglobin 9.4 g/dL (14.0-18.0); Mean Corpuscular HGB Conc 32 g/dL (31-36); Mean Corpuscular Hemoglobin 29 pg (27-31); Mean Corpuscular Volume 91 fL (80-94); Mean Platelet Volume 7.6 fL (7.4-10.4); Platelet Count 299 10^3/uL (150-450); Red Cell Distribution Width 20 % (10-15)
[2019-11-16 05:11] LABS: INR 1.54 (0.82-1.09)
[2019-11-16 05:21] LABS: BUN/Creatinine Ratio 16.2 (8-20); Calcium 8.3 mg/dL (8.6-10.3); EGFR African American 59.1 (>60); EGFR Non-African American 48.9 (>60); Magnesium 1.6 mg/dL (1.9-2.7)
[2019-11-16 05:31] LABS: Potassium 5.5 mmol/L (3.5-5.0)
[2019-11-16 05:51] LABS: ABS Eosinophils 1.7 10^3/ul (0-0.6); ABS Lymphocytes 1.4 10^3/ul (1.0-4.8); ABS Neutrophils 2.9 10^3/ul (1.5-7.7); Lymphocyte % 19.4 %
[2019-11-16] MEDS: Insulin GLARGINE 100 un/ml 10 ml VIAL SUBCUT SCH (10:08)
[2019-11-16] MEDS: Diphenoxylat/Atrop 2.5-0.025mg TAB PO SCH ×4 (10:50→21:48)
[2019-11-16] MEDS: Multivitamins ADULT w/MIN LIQ 15 ML UDC PO SCH (10:50)
[2019-11-16] MEDS: Psyllium PAK PO SCH ×2 (10:51→21:54)
[2019-11-16] MEDS: Sodium Citrate/Citric Acid LIQ 15 ML UDC PO SCH ×3 (10:52→21:47)
[2019-11-16] MEDS: Heparin DRIP 25,000 UNITS BAG 25,000 UNITS/500 ML BAG IV SCH (11:17)
[2019-11-16] MEDS: Warfarin DAILY REMINDER **NOTE FOLLOW UP SCH (18:35)
[2019-11-16] MEDS: Patiromer POWDER 8.4 GM PAK PO SCH (19:34)
[2019-11-17 06:23] LABS: Hematocrit 28 % (42-52); Hemoglobin 9.2 g/dL (14.0-18.0); Mean Corpuscular HGB Conc 33 g/dL (31-36); Mean Corpuscular Hemoglobin 30 pg (27-31); Mean Corpuscular Volume 90 fL (80-94); Mean Platelet Volume 7.6 fL (7.4-10.4); Platelet Count 255 10^3/uL (150-450); Red Blood Count 3.05 10^6 /uL (4.18-5.48); Red Cell Distribution Width 19 % (10-15); White Blood Count 6.4 10^3/uL (3.5-10.8)
[2019-11-17 06:34] LABS: INR 1.8 (0.82-1.09)
[2019-11-17] MEDS: Psyllium PAK PO SCH ×2 (09:09→21:21)
[2019-11-17] MEDS: Diphenoxylat/Atrop 2.5-0.025mg TAB PO SCH ×4 (09:10→21:20)
[2019-11-17] MEDS: Multivitamins ADULT w/MIN LIQ 15 ML UDC PO SCH (09:11)
[2019-11-17] MEDS: Sodium Citrate/Citric Acid LIQ 15 ML UDC PO SCH ×3 (09:11→21:20)
[2019-11-17 09:14] LABS: ABS Eosinophils 1.5 10^3/ul (0-0.6); ABS Lymphocytes 1.1 10^3/ul (1.0-4.8); ABS Neutrophils 2.7 10^3/ul (1.5-7.7); Eosinophil % 22.9 %
[2019-11-17] MEDS: Insulin GLARGINE 100 un/ml 10 ml VIAL SUBCUT SCH (12:22)
[2019-11-17] MEDS: Warfarin DAILY REMINDER **NOTE FOLLOW UP SCH (17:11)
[2019-11-17] MEDS: Heparin DRIP 25,000 UNITS BAG 25,000 UNITS/500 ML BAG IV SCH (19:40)
[2019-11-17] MEDS: Patiromer POWDER 8.4 GM PAK PO SCH (21:16)
[2019-11-17] MEDS: Sodium Bicarb 650 mg (ANTACID) TAB PO SCH (21:20)
[2019-11-17] MEDS: Heparin 5000 UNITS/ML 1 mL VIAL IV SCH (22:03)
[2019-11-18 04:19] LABS: Calcium 8.2 mg/dL (8.6-10.3)
[2019-11-18 04:20] LABS: Potassium 5.3 mmol/L (3.5-5.0)
[2019-11-18 04:25] LABS: BUN/Creatinine Ratio 12.6 (8-20); EGFR African American 58.7 (>60); EGFR Non-African American 48.5 (>60)
[2019-11-18 04:51] LABS: INR 2.61 (0.82-1.09)
[2019-11-18 04:53] LABS: Activated Partial Thrombo Time >240.0 seconds (26.0-38.0)
[2019-11-18] MEDS: Diphenoxylat/Atrop 2.5-0.025mg TAB PO SCH ×4 (09:48→21:19)
[2019-11-18] MEDS: Sodium Citrate/Citric Acid LIQ 15 ML UDC PO SCH ×3 (09:48→21:13)
[2019-11-18] MEDS: Sodium Bicarb 650 mg (ANTACID) TAB PO SCH ×3 (09:48→21:20)
[2019-11-18] MEDS: Multivitamins ADULT w/MIN LIQ 15 ML UDC PO SCH (09:49)
[2019-11-18] MEDS: Psyllium PAK PO SCH ×2 (09:52→21:14)
[2019-11-18] MEDS: Insulin GLARGINE 100 un/ml 10 ml VIAL SUBCUT SCH (13:02)
[2019-11-18] MEDS: Warfarin DAILY REMINDER **NOTE FOLLOW UP SCH (16:48)
[2019-11-18] MEDS: Patiromer POWDER 8.4 GM PAK PO SCH (21:16)
[2019-11-19] MEDS: Sodium Citrate/Citric Acid LIQ 15 ML UDC PO SCH ×2 (07:42→13:13)
[2019-11-19] MEDS: Psyllium PAK PO SCH ×2 (07:42→22:53)
[2019-11-19] MEDS: Diphenoxylat/Atrop 2.5-0.025mg TAB PO SCH ×4 (07:43→22:52)
[2019-11-19] MEDS: Sodium Bicarb 650 mg (ANTACID) TAB PO SCH ×3 (07:43→22:53)
[2019-11-19] MEDS: Multivitamins ADULT w/MIN LIQ 15 ML UDC PO SCH (07:44)
[2019-11-19 08:17] LABS: INR 2.89 (0.82-1.09)
[2019-11-19 09:26] LABS: Calcium 7.8 mg/dL (8.6-10.3)
[2019-11-19 09:27] LABS: Potassium 5.9 mmol/L (3.5-5.0)
[2019-11-19 09:31] LABS: EGFR African American 59.1 (>60); EGFR Non-African American 48.9 (>60)
[2019-11-19] MEDS: Insulin GLARGINE 100 un/ml 10 ml VIAL SUBCUT SCH (13:14)
[2019-11-19] MEDS: Warfarin DAILY REMINDER **NOTE FOLLOW UP SCH (17:26)
[2019-11-19] MEDS: Patiromer POWDER 8.4 GM PAK PO SCH (19:50)
[2019-11-20 06:40] LABS: ABS Basophils 0.1 10^3/ul (0-0.2); ABS Eosinophils 1.6 10^3/ul (0-0.6); ABS Lymphocytes 0.8 10^3/ul (1.0-4.8); ABS Monocytes 0.9 10^3/ul (0-0.8); ABS Neutrophils 4.4 10^3/ul (1.5-7.7); Hematocrit 28 % (42-52); Hemoglobin 9.4 g/dL (14.0-18.0); Lymphocyte % 10.8 %; Mean Corpuscular HGB Conc 34 g/dL (31-36); Mean Corpuscular Hemoglobin 30 pg (27-31); Mean Corpuscular Volume 90 fL (80-94); Mean Platelet Volume 7.5 fL (7.4-10.4); Platelet Count 272 10^3/uL (150-450); Red Cell Distribution Width 18 % (10-15); White Blood Count 7.8 10^3/uL (3.5-10.8)
[2019-11-20 06:51] LABS: INR 3.73 (0.82-1.09)
[2019-11-20 06:54] LABS: BUN/Creatinine Ratio 11.3 (8-20); Calcium 8.1 mg/dL (8.6-10.3); EGFR African American 55.5 (>60); EGFR Non-African American 45.9 (>60); Magnesium 1.3 mg/dL (1.9-2.7)
[2019-11-20] MEDS: Sodium Bicarb 650 mg (ANTACID) TAB PO SCH ×3 (08:55→20:51)
[2019-11-20] MEDS: Diphenoxylat/Atrop 2.5-0.025mg TAB PO SCH ×4 (08:56→20:51)
[2019-11-20] MEDS: Multivitamins ADULT w/MIN LIQ 15 ML UDC PO SCH (08:56)
[2019-11-20] MEDS: Psyllium PAK PO SCH ×2 (08:57→20:53)
[2019-11-20] MEDS ORDERED: Magnesium Sulf 4 GM/100 ML IV 4,000 MG/100 ML BAG IVPB ONE (09:00)
[2019-11-20] MEDS: Insulin GLARGINE 100 un/ml 10 ml VIAL SUBCUT SCH (13:11)
[2019-11-20] MEDS: Warfarin DAILY REMINDER **NOTE FOLLOW UP SCH (17:13)
[2019-11-20] MEDS: Patiromer POWDER 8.4 GM PAK PO SCH (20:39)
[2019-11-21 06:59] LABS: INR 3.86 (0.82-1.09)
[2019-11-21 07:08] LABS: BUN/Creatinine Ratio 12.1 (8-20); Calcium 7.9 mg/dL (8.6-10.3); EGFR African American 60.1 (>60); EGFR Non-African American 49.7 (>60); Magnesium 2.1 mg/dL (1.9-2.7)
[2019-11-21] MEDS: Multivitamins ADULT w/MIN LIQ 15 ML UDC PO SCH (08:37)
[2019-11-21] MEDS: Sodium Bicarb 650 mg (ANTACID) TAB PO SCH (08:38)
[2019-11-21] MEDS: Diphenoxylat/Atrop 2.5-0.025mg TAB PO SCH ×2 (08:38→13:03)
[2019-11-21] MEDS: Psyllium PAK PO SCH (08:39)
[2019-11-21 12:17] VITALS: BP 113/58
[2019-11-21] MEDS: Insulin GLARGINE 100 un/ml 10 ml VIAL SUBCUT SCH (13:04)
== END 2019-11-21 13:59 | DRG 871 ==
LOC: ED 00:12 → MEDTELE 02:23
PROVIDERS: ADMIT Hospitalist; ATTEND Internal Medicine